=== PATIENT | male | born 1945 | race African-American/Black ===

== ENCOUNTER 2017-10-18 04:06 | Inpatient (IN) ==
[2017-10-18] MEDS ORDERED: PROPOFOL 1,000 MG/100 ML BOTTLE IV ONE (04:29)
[2017-10-18] MEDS ORDERED: SODIUM CHLORIDE 0.9% 500 ML IV STA (04:40)
[2017-10-18] MEDS ORDERED: FUROSEMIDE 40 MG/4 ML VIAL IV STA (04:43)
[2017-10-18] MEDS: PROPOFOL 1,000 MG/100 ML BOTTLE IV SCH ×4 (04:44→21:30)
[2017-10-18] MEDS ORDERED: FUROSEMIDE 40 MG/4 ML VIAL ONE (05:11)
[2017-10-18 05:19] LABS: ABG Base Excess -3.7 MMOL/L (-2.5-2.5); ABG HCO3 21.3 MMOL/L (20-26); ABG Oxygen Saturation 99.3 % (95-100); ABG PH 7.268 (7.35-7.45); ABG TCO2 21.6 MMOL/L (23-27); Allen Test Positive; Pt O2 Delivery Device Ventilator
[2017-10-18 05:49] LABS: Basophils % 0.1 % (0.0-0.8); Eosinophils % 0.1 % (0.00-10.9); Hematocrit 35.9 VOL% (42.0-52.0); Hemoglobin 11.5 GM/DL (14.0-18.0); Immature Granulocytes % 2.1 %; Immature Granulocytes Absolute 0.23 #; Lymphocytes # 0.9 10*3/uL (1.4-4.0); Lymphocytes % 7.7 % (21.2-54.2); Mean Corpuscular Hemoglobin 29 PG (27-34); Mean Corpuscular Volume 89.8 FL (87-102); Mean Platelet Volume 13.6 FL (9.6-12.0); Monocytes # 0.9 10*3/uL (0.11-0.8); Neutrophils # 9.2 10*3/uL (1.4-7.4); Platelet Count 220 T/CUMM (130-400); Red Cell Distribution Width 16.2 % (9.3-17.3); White Blood Count 11.2 T/CUMM (4-12)
[2017-10-18] MEDS: NITROGLYCERIN DRIP 50 MG/250 ML BOTTLE IV SCH (06:04)
[2017-10-18 06:09] LABS: Albumin 3.2 G/DL (3.4-5.0); Bilirubin,Total 1.2 MG/DL (0.2-1.0); Calcium 8.4 MG/DL (8.5-10.1); Osmolality,Calculated 263.8 MOS/KG (273-304); Potassium 3.9 MMOL/L (3.5-5.1)
[2017-10-18] MEDS ORDERED: ONDANSETRON 4 MG/2 ML VIAL IV PRN (06:11)
[2017-10-18 06:19] LABS: Troponin I Only 4.32 NG/ML (0.00-0.045)
[2017-10-18] MEDS ORDERED: GLUCAGON 1 MG VIAL IM PRN (08:07)
[2017-10-18] MEDS ORDERED: DEXTROSE 50% 25 GM/50 ML VIAL IV PRN (08:07)
[2017-10-18] MEDS: METOPROLOL TARTRATE 50 MG TABLET PO SCH ×2 (09:00→21:13)
[2017-10-18] MEDS ORDERED: POTASSIUM CHLORIDE 20 MEQ TABLET PO SCH (09:00)
[2017-10-18] MEDS: ASPIRIN CHEW 81 MG TABLET PO SCH (09:00)
[2017-10-18] MEDS: amLODIPine 10 MG TABLET PO SCH (09:00)
[2017-10-18] MEDS ORDERED: LEVOFLOXACIN INJ 250 MG in PREMIX 1 EACH IV SCH (11:00)
[2017-10-18] MEDS ORDERED: LEVOFLOXACIN INJ 100 ML IV ONE (11:26)
[2017-10-18 12:10] LABS: Apearance,Urine Slightly Hazy (Clear); Bilirubin,Urine Negative (Negative); Blood, Urine Moderate mg/dL (Negative); Glucose,Urine (UA) Negative (Negative); Ketones,Urine Negative (Negative); Mucus,Urine Occasional /LPF (Occasional); Nitrite,Urine Negative (Negative); Protein,Urine Negative; RBC,Urine 4 /HPF (0-4); Squamous Epithelial Cell,Urine Occasional /HPF (0-10); Urine Color Straw (Yellow); Urine Specific Gravity 1.005 (1.001-1.035); Urine Urobilinogen < 2.0 EU/DL (0.2-1.0); WBC,Urine 1 /HPF (0-6)
[2017-10-18 12:11] LABS: ABG Base Excess 1.5 MMOL/L (-2.5-2.5); ABG HCO3 25.7 MMOL/L (20-26); ABG PCO2 35.8 MM HG (35-48); ABG PH 7.454 (7.35-7.45); ABG TCO2 22.6 MMOL/L (23-27); Allen Test Positive; Pt O2 Delivery Device Ventilator
[2017-10-18] MEDS: MULTIVITAMIN (BEROCCA) TABLET PO SCH (12:32)
[2017-10-18] MEDS: FOLIC ACID 1 MG TABLET PO SCH (12:32)
[2017-10-18] MEDS ORDERED: CYANOCOBALAMIN 1000 MCG/1 ML VIAL ONE (12:34)
[2017-10-18] MEDS ORDERED: THIAMINE 200 MG/2 ML VIAL ONE (12:35)
[2017-10-18] MEDS: THIAMINE 200 MG/2 ML VIAL IV SCH (12:35)
[2017-10-18 13:48] LABS: Barbiturates Screen,Urine Negative (Negative); Benzodiazepines Screen,Urine Positive (Negative); Cannabinoid Screen,Urine Negative (Negative); Opiate Screen,Urine Negative (Negative); Phencyclidine Screen,Urine Negative (Negative)
[2017-10-18] MEDS: ISOSORBIDE DINITRATE 10 MG TABLET PO SCH ×2 (14:18→21:13)
[2017-10-18] MEDS: INSULIN LISPRO 100 UNIT/ML SUBCUT SCH ×2 (15:35→18:36)
[2017-10-18] MEDS ORDERED: FUROSEMIDE 40 MG/4 ML VIAL IV SCH ×2 (16:00)
[2017-10-18] MEDS ORDERED: hydrALAZINE 25 MG TABLET ONE (21:08)
[2017-10-18] MEDS: FUROSEMIDE 40 MG/4 ML VIAL IV SCH (21:15)
[2017-10-19] MEDS: INSULIN LISPRO 100 UNIT/ML SUBCUT SCH ×4 (00:16→17:26)
[2017-10-19] MEDS: PROPOFOL 1,000 MG/100 ML BOTTLE IV SCH ×4 (01:22→22:31)
[2017-10-19] MEDS: ENOXAPARIN 40 MG/0.4 ML SYRINGE SUBCUT SCH (03:24)
[2017-10-19 04:15] LABS: Allen Test Positive; Pt O2 Delivery Device Ventilator
[2017-10-19 04:18] LABS: ABG Base Excess 6.8 MMOL/L (-2.5-2.5); ABG HCO3 30.7 MMOL/L (20-26); ABG PCO2 26.9 MM HG (35-48); ABG TCO2 25.3 MMOL/L (23-27)
[2017-10-19 04:23] LABS: ABG PH 7.622 (7.35-7.45)
[2017-10-19 05:18] LABS: Basophils % 0.2 % (0.0-0.8); Hematocrit 29.7 VOL% (42.0-52.0); Hemoglobin 10.1 GM/DL (14.0-18.0); Immature Granulocytes % 0.5 %; Immature Granulocytes Absolute 0.03 #; Lymphocytes # 0.7 10*3/uL (1.4-4.0); Lymphocytes % 11.1 % (21.2-54.2); Mean Corpuscular Hemoglobin 29 PG (27-34); Mean Corpuscular Volume 84.1 FL (87-102); Mean Platelet Volume 14.1 FL (9.6-12.0); Monocytes # 0.7 10*3/uL (0.11-0.8); Monocytes % 10.8 % (1.7-12.7); Neutrophils % 77.4 % (38.7-73.9); Platelet Count 185 T/CUMM (130-400); Red Blood Count 3.53 MC/CUMM (3.8-5.5); Red Cell Distribution Width 16.4 % (9.3-17.3); White Blood Count 6.5 T/CUMM (4-12)
[2017-10-19 05:21] LABS: INR 1.2; PT Patient Result 12.1 SECS
[2017-10-19 05:43] LABS: Magnesium 1.5 MG/DL (1.8-2.4); Osmolality,Calculated 270.2 MOS/KG (273-304); Potassium 3.6 MMOL/L (3.5-5.1)
[2017-10-19 05:57] LABS: Albumin 2.4 G/DL (3.4-5.0); Bilirubin,Total 1.2 MG/DL (0.2-1.0); Calcium 7.8 MG/DL (8.5-10.1); Osmolality,Calculated 269.2 MOS/KG (273-304); Potassium 3.6 MMOL/L (3.5-5.1); Risk Ratio 2.9; Total Protein 5.2 G/DL (6.4-8.3); VLDL CHOLESTEROL 17.2 MG/DL
[2017-10-19] MEDS: NITROGLYCERIN DRIP 50 MG/250 ML BOTTLE IV SCH (06:23)
[2017-10-19 06:31] LABS: ABG Base Excess 7.4 MMOL/L (-2.5-2.5); ABG HCO3 31.3 MMOL/L (20-26); ABG PCO2 36.1 MM HG (35-48); ABG PH 7.534 (7.35-7.45); ABG TCO2 27.6 MMOL/L (23-27); Allen Test Positive; Pt O2 Delivery Device Ventilator
[2017-10-19] MEDS ORDERED: MAGNESIUM SULF RIDER 2 GM in PREMIX 1 EACH IV PRN (06:37)
[2017-10-19] MEDS ORDERED: POTASSIUM CHLORIDE RIDER 10 MEQ in PREMIX 1 EACH IV PRN (06:37)
[2017-10-19] MEDS ORDERED: MAGNESIUM SULF RIDER 4 GM in PREMIX 1 EACH IV PRN (06:37)
[2017-10-19] MEDS: ASPIRIN CHEW 81 MG TABLET PO SCH (08:30)
[2017-10-19] MEDS: MAGNESIUM SULF RIDER 2 GM in PREMIX 1 EACH IV SCH ×2 (08:30→21:29)
[2017-10-19] MEDS: FOLIC ACID 1 MG TABLET PO SCH (08:30)
[2017-10-19] MEDS: THIAMINE 200 MG/2 ML VIAL IV SCH (08:30)
[2017-10-19] MEDS: ISOSORBIDE DINITRATE 10 MG TABLET PO SCH ×3 (08:30→21:33)
[2017-10-19] MEDS: POTASSIUM CHLORIDE 20 MEQ PACK PO SCH (08:30)
[2017-10-19] MEDS: MULTIVITAMIN (BEROCCA) TABLET PO SCH (08:30)
[2017-10-19] MEDS: FUROSEMIDE 40 MG/4 ML VIAL IV SCH ×2 (08:31→21:38)
[2017-10-19] MEDS: METOPROLOL TARTRATE 50 MG TABLET PO SCH ×2 (08:35→21:33)
[2017-10-19] MEDS: amLODIPine 10 MG TABLET PO SCH (08:35)
[2017-10-19] MEDS ORDERED: ALBUMIN 25% 12.5 GM in PREMIX 1 EACH IV ONE (15:16)
[2017-10-19] MEDS ORDERED: LORazepam 2 MG/1 ML VIAL IV PRN (19:46)
[2017-10-20] MEDS: INSULIN LISPRO 100 UNIT/ML SUBCUT SCH ×4 (00:01→17:21)
[2017-10-20] MEDS: ENOXAPARIN 40 MG/0.4 ML SYRINGE SUBCUT SCH (02:55)
[2017-10-20 04:42] LABS: ABG Base Excess 3.9 MMOL/L (-2.5-2.5); ABG HCO3 26.7 MMOL/L (20-26); ABG Oxygen Saturation 99.2 % (95-100); ABG PH 7.513 (7.35-7.45); ABG PO2 218.9 MM HG (80-95); ABG TCO2 27.8 MMOL/L (23-27); Allen Test Positive; Pt O2 Delivery Device Ventilator
[2017-10-20] MEDS: PROPOFOL 1,000 MG/100 ML BOTTLE IV SCH ×2 (07:13→18:48)
[2017-10-20] MEDS: amLODIPine 10 MG TABLET PO SCH (08:11)
[2017-10-20] MEDS: ISOSORBIDE DINITRATE 10 MG TABLET PO SCH ×3 (08:16→21:12)
[2017-10-20] MEDS: POTASSIUM CHLORIDE 20 MEQ PACK PO SCH (08:16)
[2017-10-20] MEDS: MAGNESIUM SULF RIDER 2 GM in PREMIX 1 EACH IV SCH (08:16)
[2017-10-20] MEDS: metOLazone 5 MG TABLET PO SCH (08:17)
[2017-10-20] MEDS: MULTIVITAMIN (BEROCCA) TABLET PO SCH (08:17)
[2017-10-20] MEDS: METOPROLOL TARTRATE 50 MG TABLET PO SCH ×2 (08:17→21:12)
[2017-10-20] MEDS: ASPIRIN CHEW 81 MG TABLET PO SCH (08:17)
[2017-10-20] MEDS: THIAMINE 200 MG/2 ML VIAL IV SCH (08:17)
[2017-10-20] MEDS: FUROSEMIDE 40 MG/4 ML VIAL IV SCH (08:17)
[2017-10-20] MEDS: FOLIC ACID 1 MG TABLET PO SCH (08:17)
[2017-10-20 08:20] LABS: Basophils % 0.1 % (0.0-0.8); Eosinophils # 0.1 10*3/uL (0.0-0.87); Eosinophils % 1.1 % (0.00-10.9); Hematocrit 33.7 VOL% (42.0-52.0); Hemoglobin 10.8 GM/DL (14.0-18.0); Immature Granulocytes % 0.4 %; Immature Granulocytes Absolute 0.03 #; Lymphocytes # 1.4 10*3/uL (1.4-4.0); Lymphocytes % 16.3 % (21.2-54.2); Mean Corpuscular Hemoglobin 28 PG (27-34); Mean Corpuscular Volume 87.1 FL (87-102); Monocytes # 1.4 10*3/uL (0.11-0.8); Monocytes % 16.5 % (1.7-12.7); Neutrophils # 5.5 10*3/uL (1.4-7.4); Neutrophils % 65.6 % (38.7-73.9); Platelet Count 170 T/CUMM (130-400); Red Blood Count 3.87 MC/CUMM (3.8-5.5); Red Cell Distribution Width 16.8 % (9.3-17.3); White Blood Count 8.4 T/CUMM (4-12)
[2017-10-20 08:27] LABS: Albumin 2.7 G/DL (3.4-5.0); Calcium 8.6 MG/DL (8.5-10.1); Magnesium 2.7 MG/DL (1.8-2.4); Osmolality,Calculated 267.5 MOS/KG (273-304); Potassium 3.9 MMOL/L (3.5-5.1)
[2017-10-20 08:38] LABS: CKMB % 1.9 %
[2017-10-20 08:39] LABS: Troponin I Only 8.07 NG/ML (0.00-0.045)
[2017-10-20] MEDS ORDERED: BISACODYL 10 MG SUPP RECTAL ONE (09:12)
[2017-10-20] MEDS ORDERED: BISACODYL 10 MG SUPP RECTAL PRN (09:12)
[2017-10-20 11:57] LABS: Eosinophils 1 % (0-10); Lymphocytes 13 % (20-55); Segmented Neutrophils 78 % (50-85); Total Cells Counted 100
[2017-10-20 11:58] LABS: Platelet Estimate Adequate
[2017-10-20 12:00] LABS: Burr Cells Slight; Target Cells Slight
[2017-10-20] MEDS: ENOXAPARIN 30 MG/0.3 ML SYRINGE SUBCUT SCH (21:13)
[2017-10-21] MEDS: INSULIN LISPRO 100 UNIT/ML SUBCUT SCH ×4 (00:01→17:24)
[2017-10-21] MEDS: PROPOFOL 1,000 MG/100 ML BOTTLE IV SCH ×4 (00:31→20:18)
[2017-10-21 04:32] LABS: ABG Base Excess 4.9 MMOL/L (-2.5-2.5); ABG HCO3 28.1 MMOL/L (20-26); ABG Oxygen Saturation 97.8 % (95-100); ABG PCO2 36.4 MM HG (35-48); ABG PH 7.506 (7.35-7.45); ABG PO2 115.1 MM HG (80-95); ABG TCO2 29.3 MMOL/L (23-27)
[2017-10-21 04:42] LABS: Basophils % 0.2 % (0.0-0.8); Eosinophils # 0.2 10*3/uL (0.0-0.87); Eosinophils % 1.9 % (0.00-10.9); Hematocrit 31.4 VOL% (42.0-52.0); Hemoglobin 10.2 GM/DL (14.0-18.0); Immature Granulocytes % 0.5 %; Immature Granulocytes Absolute 0.05 #; Lymphocytes # 1.4 10*3/uL (1.4-4.0); Lymphocytes % 14.8 % (21.2-54.2); Mean Corpuscular HGB Conc 32.5 GM/DL (32-36); Mean Corpuscular Hemoglobin 28 PG (27-34); Mean Corpuscular Volume 85.8 FL (87-102); Mean Platelet Volume 13.5 FL (9.6-12.0); Monocytes % 20.8 % (1.7-12.7); Neutrophils # 5.8 10*3/uL (1.4-7.4); Neutrophils % 61.8 % (38.7-73.9); Platelet Count 176 T/CUMM (130-400); Red Blood Count 3.66 MC/CUMM (3.8-5.5); Red Cell Distribution Width 16.9 % (9.3-17.3); White Blood Count 9.4 T/CUMM (4-12)
[2017-10-21 05:02] LABS: Calcium 8.5 MG/DL (8.5-10.1); Magnesium 2.9 MG/DL (1.8-2.4); Osmolality,Calculated 271.4 MOS/KG (273-304); Potassium 3.9 MMOL/L (3.5-5.1)
[2017-10-21 05:05] LABS: Albumin 2.6 G/DL (3.4-5.0); Calcium 8.6 MG/DL (8.5-10.1); Osmolality,Calculated 269.5 MOS/KG (273-304); Potassium 4.1 MMOL/L (3.5-5.1)
[2017-10-21 08:25] LABS: Burr Cells Slight; Eosinophils 2 % (0-10); Lymphocytes 14 % (20-55); Nucleated Red Blood Cells 1 (0-5); Platelet Estimate Adequate; Segmented Neutrophils 69 % (50-85); Target Cells Slight; Total Cells Counted 100
[2017-10-21] MEDS: POTASSIUM CHLORIDE 20 MEQ PACK PO SCH (08:43)
[2017-10-21] MEDS: THIAMINE 200 MG/2 ML VIAL IV SCH (08:43)
[2017-10-21] MEDS: MULTIVITAMIN (BEROCCA) TABLET PO SCH (08:43)
[2017-10-21] MEDS: ASPIRIN CHEW 81 MG TABLET PO SCH (08:43)
[2017-10-21] MEDS: amLODIPine 10 MG TABLET PO SCH (08:43)
[2017-10-21] MEDS: metOLazone 5 MG TABLET PO SCH (08:43)
[2017-10-21] MEDS: ISOSORBIDE DINITRATE 10 MG TABLET PO SCH ×3 (08:43→22:06)
[2017-10-21] MEDS: FOLIC ACID 1 MG TABLET PO SCH (08:43)
[2017-10-21] MEDS: METOPROLOL TARTRATE 50 MG TABLET PO SCH ×2 (08:43→22:06)
[2017-10-21] MEDS: DOBUTamine 500 MG/250 ML PREMIX IV SCH (10:53)
[2017-10-21] MEDS: ENOXAPARIN 30 MG/0.3 ML SYRINGE SUBCUT SCH (22:06)
[2017-10-22] MEDS: INSULIN LISPRO 100 UNIT/ML SUBCUT SCH ×5 (01:01→23:38)
[2017-10-22 04:13] LABS: ABG Base Excess 6.5 MMOL/L (-2.5-2.5); ABG HCO3 30.1 MMOL/L (20-26); ABG PCO2 39.3 MM HG (35-48); ABG PH 7.502 (7.35-7.45); ABG PO2 164.6 MM HG (80-95); ABG TCO2 31.3 MMOL/L (23-27)
[2017-10-22 04:49] LABS: Basophils % 0.3 % (0.0-0.8); Eosinophils # 0.1 10*3/uL (0.0-0.87); Eosinophils % 1.7 % (0.00-10.9); Hematocrit 30.7 VOL% (42.0-52.0); Hemoglobin 9.9 GM/DL (14.0-18.0); Immature Granulocytes % 0.5 %; Immature Granulocytes Absolute 0.04 #; Lymphocytes # 0.9 10*3/uL (1.4-4.0); Lymphocytes % 11.4 % (21.2-54.2); Mean Corpuscular HGB Conc 32.2 GM/DL (32-36); Mean Corpuscular Hemoglobin 28 PG (27-34); Mean Corpuscular Volume 86.2 FL (87-102); Mean Platelet Volume 14.1 FL (9.6-12.0); Monocytes # 0.9 10*3/uL (0.11-0.8); Monocytes % 12.4 % (1.7-12.7); Neutrophils # 5.6 10*3/uL (1.4-7.4); Neutrophils % 73.7 % (38.7-73.9); Platelet Count 178 T/CUMM (130-400); Red Blood Count 3.56 MC/CUMM (3.8-5.5); Red Cell Distribution Width 16.4 % (9.3-17.3); White Blood Count 7.6 T/CUMM (4-12)
[2017-10-22 05:37] LABS: Albumin 2.7 G/DL (3.4-5.0); Bilirubin,Direct 0.46 MG/DL (0.0-0.20); Bilirubin,Indirect 0.5 MG/DL (0.0-1.0); Calcium 8.3 MG/DL (8.5-10.1); Magnesium 2.7 MG/DL (1.8-2.4); Osmolality,Calculated 275.2 MOS/KG (273-304); Potassium 3.8 MMOL/L (3.5-5.1); Total Protein 5.8 G/DL (6.4-8.3)
[2017-10-22] MEDS: PROPOFOL 1,000 MG/100 ML BOTTLE IV SCH ×2 (06:12→22:04)
[2017-10-22 06:18] LABS: Albumin 2.8 G/DL (3.4-5.0); Calcium 8.2 MG/DL (8.5-10.1); Osmolality,Calculated 275.2 MOS/KG (273-304); Potassium 3.7 MMOL/L (3.5-5.1)
[2017-10-22] MEDS: amLODIPine 10 MG TABLET PO SCH (08:57)
[2017-10-22] MEDS: POTASSIUM CHLORIDE 20 MEQ PACK PO SCH (08:57)
[2017-10-22] MEDS: MULTIVITAMIN (BEROCCA) TABLET PO SCH (08:58)
[2017-10-22] MEDS: ASPIRIN CHEW 81 MG TABLET PO SCH (08:58)
[2017-10-22] MEDS: ISOSORBIDE DINITRATE 10 MG TABLET PO SCH ×3 (08:58→22:03)
[2017-10-22] MEDS: FOLIC ACID 1 MG TABLET PO SCH (08:58)
[2017-10-22] MEDS: THIAMINE 200 MG/2 ML VIAL IV SCH (08:59)
[2017-10-22] MEDS: METOPROLOL TARTRATE 50 MG TABLET PO SCH ×2 (09:03→22:02)
[2017-10-22] MEDS: DOBUTamine 500 MG/250 ML PREMIX IV SCH ×2 (09:39→11:47)
[2017-10-22] MEDS ORDERED: POTASSIUM CHLORIDE INJ 20 MEQ in SODIUM CHLORIDE 0.45% 250 ML IV SCH (10:00)
[2017-10-22] MEDS: MILRINONE 20 MG/100 ML PREMIX IV SCH (13:04)
[2017-10-22] MEDS: METOCLOPRAMIDE 10 MG/2 ML VIAL IV SCH ×3 (14:30→23:36)
[2017-10-22] MEDS: ENOXAPARIN 30 MG/0.3 ML SYRINGE SUBCUT SCH (22:02)
[2017-10-23] MEDS: MILRINONE 20 MG/100 ML PREMIX IV SCH ×2 (02:20→15:49)
[2017-10-23] MEDS: PROPOFOL 1,000 MG/100 ML BOTTLE IV SCH ×5 (02:21→20:57)
[2017-10-23 04:22] LABS: Allen Test Positive; Pt O2 Delivery Device Ventilator
[2017-10-23 04:23] LABS: ABG Base Excess 9.2 MMOL/L (-2.5-2.5); ABG Oxygen Saturation 99.5 % (95-100); ABG PCO2 47.1 MM HG (35-48); ABG PH 7.469 (7.35-7.45); ABG TCO2 30.6 MMOL/L (23-27)
[2017-10-23 05:05] LABS: Albumin 2.5 G/DL (3.4-5.0); Calcium 8.2 MG/DL (8.5-10.1); Potassium 3.5 MMOL/L (3.5-5.1)
[2017-10-23] MEDS: INSULIN LISPRO 100 UNIT/ML SUBCUT SCH ×4 (06:36→23:12)
[2017-10-23] MEDS: METOCLOPRAMIDE 10 MG/2 ML VIAL IV SCH ×3 (07:25→17:16)
[2017-10-23] MEDS: THIAMINE 200 MG/2 ML VIAL IV SCH (08:34)
[2017-10-23] MEDS: MULTIVITAMIN (BEROCCA) TABLET PO SCH (08:35)
[2017-10-23] MEDS: amLODIPine 10 MG TABLET PO SCH (08:35)
[2017-10-23] MEDS: POTASSIUM CHLORIDE 20 MEQ PACK PO SCH (08:35)
[2017-10-23] MEDS: ISOSORBIDE DINITRATE 10 MG TABLET PO SCH ×3 (08:35→20:57)
[2017-10-23] MEDS: ASPIRIN CHEW 81 MG TABLET PO SCH (08:36)
[2017-10-23] MEDS: FOLIC ACID 1 MG TABLET PO SCH (08:36)
[2017-10-23] MEDS: METOPROLOL TARTRATE 50 MG TABLET PO SCH ×2 (08:36→20:41)
[2017-10-23] MEDS ORDERED: POTASSIUM CHLORIDE INJ 20 MEQ in SODIUM CHLORIDE 0.9% 250 ML IV SCH (09:30)
[2017-10-23] MEDS: DOBUTamine 500 MG/250 ML PREMIX IV SCH (10:10)
[2017-10-23] MEDS: ENOXAPARIN 30 MG/0.3 ML SYRINGE SUBCUT SCH (20:57)
[2017-10-24] MEDS ORDERED: SODIUM CHLORIDE 0.9% 200 ML IV ONE (00:30)
[2017-10-24] MEDS: METOCLOPRAMIDE 10 MG/2 ML VIAL IV SCH ×4 (01:30→18:10)
[2017-10-24] MEDS: PROPOFOL 1,000 MG/100 ML BOTTLE IV SCH ×4 (01:53→23:52)
[2017-10-24 04:18] LABS: ABG Base Excess 10.4 MMOL/L (-2.5-2.5); ABG HCO3 34.1 MMOL/L (20-26); ABG Oxygen Saturation 99.9 % (95-100); ABG PCO2 43.8 MM HG (35-48); ABG PH 7.506 (7.35-7.45); ABG TCO2 31.8 MMOL/L (23-27); Allen Test Positive; Pt O2 Delivery Device Ventilator
[2017-10-24] MEDS: INSULIN LISPRO 100 UNIT/ML SUBCUT SCH ×4 (05:28→23:52)
[2017-10-24] MEDS: MILRINONE 20 MG/100 ML PREMIX IV SCH ×2 (06:28→21:15)
[2017-10-24] MEDS ORDERED: MIDAZOLAM 100 MG in SODIUM CHLORIDE 0.9% 80 ML IV SCH (08:30)
[2017-10-24] MEDS: MULTIVITAMIN (BEROCCA) TABLET PO SCH (09:00)
[2017-10-24] MEDS: ASPIRIN CHEW 81 MG TABLET PO SCH (09:00)
[2017-10-24] MEDS: POTASSIUM CHLORIDE 20 MEQ PACK PO SCH (09:00)
[2017-10-24] MEDS: THIAMINE 200 MG/2 ML VIAL IV SCH (09:00)
[2017-10-24] MEDS: FOLIC ACID 1 MG TABLET PO SCH (09:00)
[2017-10-24] MEDS: METOPROLOL TARTRATE 50 MG TABLET PO SCH ×3 (09:00→20:17)
[2017-10-24] MEDS: ISOSORBIDE DINITRATE 10 MG TABLET PO SCH ×3 (09:00→20:17)
[2017-10-24] MEDS: amLODIPine 10 MG TABLET PO SCH (09:00)
[2017-10-24 09:24] LABS: Calcium 7.6 MG/DL (8.5-10.1); Magnesium 2.5 MG/DL (1.8-2.4); Potassium 3.7 MMOL/L (3.5-5.1)
[2017-10-24] MEDS: DOBUTamine 500 MG/250 ML PREMIX IV SCH (10:00)
[2017-10-24] MEDS ORDERED: INFLUENZA VIRUS VACCINE 0.5 ML SYRINGE IM ONE (12:00)
[2017-10-24] MEDS: hydrALAZINE 25 MG TABLET PO SCH ×2 (17:10→20:17)
[2017-10-24] MEDS: ENOXAPARIN 30 MG/0.3 ML SYRINGE SUBCUT SCH (20:17)
[2017-10-25] MEDS: METOCLOPRAMIDE 10 MG/2 ML VIAL IV SCH ×4 (00:20→18:00)
[2017-10-25 02:54] LABS: ABG Base Excess 12.1 MMOL/L (-2.5-2.5); ABG HCO3 36.3 MMOL/L (20-26); ABG Oxygen Saturation 98.4 % (95-100); ABG PH 7.515 (7.35-7.45); ABG PO2 126.8 MM HG (80-95); ABG TCO2 37.7 MMOL/L (23-27); Allen Test Positive; Pt O2 Delivery Device Ventilator
[2017-10-25] MEDS: INSULIN LISPRO 100 UNIT/ML SUBCUT SCH ×3 (06:04→18:00)
[2017-10-25 06:24] LABS: Basophils % 0.1 % (0.0-0.8); Eosinophils # 0.3 10*3/uL (0.0-0.87); Eosinophils % 3.4 % (0.00-10.9); Hematocrit 26.1 VOL% (42.0-52.0); Hemoglobin 8.6 GM/DL (14.0-18.0); Immature Granulocytes % 0.8 %; Immature Granulocytes Absolute 0.06 #; Lymphocytes % 12.9 % (21.2-54.2); Mean Corpuscular Hemoglobin 28 PG (27-34); Mean Corpuscular Volume 84.2 FL (87-102); Mean Platelet Volume 13.8 FL (9.6-12.0); Monocytes # 1.2 10*3/uL (0.11-0.8); Monocytes % 16.6 % (1.7-12.7); Neutrophils # 4.9 10*3/uL (1.4-7.4); Neutrophils % 66.2 % (38.7-73.9); Platelet Count 164 T/CUMM (130-400); Red Cell Distribution Width 17.2 % (9.3-17.3); White Blood Count 7.5 T/CUMM (4-12)
[2017-10-25 06:48] LABS: Eosinophils 5 % (0-10); Hypochromasia 1+; Lymphocytes 20 % (20-55); Microcytosis 1+; Segmented Neutrophils 62 % (50-85); Total Cells Counted 100
[2017-10-25 06:49] LABS: Giant Platelets Few; Platelet Estimate Adequate
[2017-10-25 06:53] LABS: Calcium 8.1 MG/DL (8.5-10.1); Magnesium 2.2 MG/DL (1.8-2.4); Osmolality,Calculated 284.8 MOS/KG (273-304); Potassium 3.6 MMOL/L (3.5-5.1)
[2017-10-25 07:06] LABS: Prealbumin 13.8 MG/DL (20-40)
[2017-10-25] MEDS: PROPOFOL 1,000 MG/100 ML BOTTLE IV SCH ×2 (08:00→17:00)
[2017-10-25] MEDS: hydrALAZINE 25 MG TABLET PO SCH ×4 (08:30→21:13)
[2017-10-25] MEDS: ASPIRIN CHEW 81 MG TABLET PO SCH (08:30)
[2017-10-25] MEDS: FOLIC ACID 1 MG TABLET PO SCH (08:30)
[2017-10-25] MEDS: POTASSIUM CHLORIDE 20 MEQ PACK PO SCH (08:30)
[2017-10-25] MEDS: ISOSORBIDE DINITRATE 10 MG TABLET PO SCH ×3 (08:30→21:12)
[2017-10-25] MEDS: METOPROLOL TARTRATE 50 MG TABLET PO SCH ×2 (08:30→21:12)
[2017-10-25] MEDS: MULTIVITAMIN (BEROCCA) TABLET PO SCH (08:30)
[2017-10-25] MEDS: THIAMINE 200 MG/2 ML VIAL IV SCH (08:30)
[2017-10-25 09:40] LABS: ABG Base Excess 11.6 MMOL/L (-2.5-2.5); ABG HCO3 36.3 MMOL/L (20-26); ABG Oxygen Saturation 98.2 % (95-100); ABG PCO2 49.1 MM HG (35-48); ABG PH 7.487 (7.35-7.45); ABG PO2 114.4 MM HG (80-95); ABG TCO2 37.8 MMOL/L (23-27)
[2017-10-25] MEDS: DOBUTamine 500 MG/250 ML PREMIX IV SCH (10:00)
[2017-10-25] MEDS ORDERED: FUROSEMIDE 40 MG/4 ML VIAL IV SCH (14:00)
[2017-10-25] MEDS: ALBUMIN 25% 25 GM in PREMIX 1 EACH IV SCH (14:00)
[2017-10-25] MEDS: ENOXAPARIN 30 MG/0.3 ML SYRINGE SUBCUT SCH (21:12)
[2017-10-25] MEDS: LACTULOSE 20 GM/30 ML UDCUP PO SCH (21:13)
[2017-10-26] MEDS: INSULIN LISPRO 100 UNIT/ML SUBCUT SCH ×5 (00:23→23:25)
[2017-10-26] MEDS: METOCLOPRAMIDE 10 MG/2 ML VIAL IV SCH ×5 (00:51→23:35)
[2017-10-26] MEDS: PROPOFOL 1,000 MG/100 ML BOTTLE IV SCH ×2 (03:25→09:03)
[2017-10-26 06:42] LABS: Basophils % 0.5 % (0.0-0.8); Eosinophils # 0.3 10*3/uL (0.0-0.87); Eosinophils % 3.9 % (0.00-10.9); Hematocrit 26.6 VOL% (42.0-52.0); Hemoglobin 8.6 GM/DL (14.0-18.0); Immature Granulocytes % 0.8 %; Immature Granulocytes Absolute 0.06 #; Lymphocytes % 13.6 % (21.2-54.2); Mean Corpuscular HGB Conc 32.3 GM/DL (32-36); Mean Corpuscular Hemoglobin 28 PG (27-34); Mean Corpuscular Volume 85.3 FL (87-102); Mean Platelet Volume 13.1 FL (9.6-12.0); Monocytes # 1.1 10*3/uL (0.11-0.8); Monocytes % 14.4 % (1.7-12.7); Neutrophils % 66.8 % (38.7-73.9); Platelet Count 172 T/CUMM (130-400); Red Blood Count 3.12 MC/CUMM (3.8-5.5); Red Cell Distribution Width 17.2 % (9.3-17.3); White Blood Count 7.4 T/CUMM (4-12)
[2017-10-26 07:10] LABS: Calcium 8.5 MG/DL (8.5-10.1); Magnesium 2.2 MG/DL (1.8-2.4); Osmolality,Calculated 288.5 MOS/KG (273-304); Potassium 3.5 MMOL/L (3.5-5.1)
[2017-10-26 07:20] LABS: ABG Base Excess 11.9 MMOL/L (-2.5-2.5); ABG HCO3 36.5 MMOL/L (20-26); ABG Oxygen Saturation 98.1 % (95-100); ABG PCO2 48.3 MM HG (35-48); ABG PH 7.496 (7.35-7.45); ABG PO2 110.1 MM HG (80-95); Allen Test Positive; Pt O2 Delivery Device Ventilator
[2017-10-26] MEDS: ASPIRIN CHEW 81 MG TABLET PO SCH (08:06)
[2017-10-26] MEDS: LACTULOSE 20 GM/30 ML UDCUP PO SCH ×2 (08:06→20:20)
[2017-10-26] MEDS: THIAMINE 200 MG/2 ML VIAL IV SCH (08:06)
[2017-10-26] MEDS: ISOSORBIDE DINITRATE 10 MG TABLET PO SCH ×3 (08:06→20:20)
[2017-10-26] MEDS: hydrALAZINE 25 MG TABLET PO SCH ×3 (08:06→20:23)
[2017-10-26] MEDS: FOLIC ACID 1 MG TABLET PO SCH (08:06)
[2017-10-26] MEDS: POTASSIUM CHLORIDE 20 MEQ PACK PO SCH (08:07)
[2017-10-26] MEDS: MULTIVITAMIN (BEROCCA) TABLET PO SCH (08:07)
[2017-10-26] MEDS: METOPROLOL TARTRATE 50 MG TABLET PO SCH (08:07)
[2017-10-26] MEDS: ALBUMIN 25% 25 GM in PREMIX 1 EACH IV SCH (08:09)
[2017-10-26] MEDS: FUROSEMIDE 40 MG/4 ML VIAL IV SCH (08:10)
[2017-10-26] MEDS ORDERED: POTASSIUM CHLORIDE INJ 30 MEQ in SODIUM CHLORIDE 0.9% 500 ML IV SCH (09:00)
[2017-10-26 09:49] LABS: Allen Test Positive
[2017-10-26 09:50] LABS: ABG Base Excess 11.5 MMOL/L (-2.5-2.5); ABG HCO3 35.3 MMOL/L (20-26); ABG Oxygen Saturation 99.9 % (95-100); ABG PCO2 51.6 MM HG (35-48); ABG PH 7.462 (7.35-7.45)
[2017-10-26] MEDS ORDERED: ALBUTEROL/IPRATROPIUM 3 ML NEB RESP TX PRN (11:26)
[2017-10-26] MEDS: ALBUTEROL/IPRATROPIUM 3 ML NEB RESP TX SCH ×2 (13:41→19:26)
[2017-10-26] MEDS: METOPROLOL TARTRATE 100 MG TABLET PO SCH ×2 (15:31→20:24)
[2017-10-26] MEDS: ENOXAPARIN 30 MG/0.3 ML SYRINGE SUBCUT SCH (20:20)
[2017-10-27] MEDS: ALBUTEROL/IPRATROPIUM 3 ML NEB RESP TX SCH ×4 (01:31→19:28)
[2017-10-27 03:30] LABS: ABG Base Excess 10.8 MMOL/L (-2.5-2.5); ABG HCO3 34.5 MMOL/L (20-26); ABG Oxygen Saturation 99.6 % (95-100); ABG PCO2 48.4 MM HG (35-48); ABG PH 7.476 (7.35-7.45)
[2017-10-27 04:11] LABS: Basophils % 0.6 % (0.0-0.8); Eosinophils # 0.3 10*3/uL (0.0-0.87); Eosinophils % 5.2 % (0.00-10.9); Hematocrit 25.6 VOL% (42.0-52.0); Immature Granulocytes % 0.5 %; Immature Granulocytes Absolute 0.03 #; Lymphocytes # 1.3 10*3/uL (1.4-4.0); Lymphocytes % 20.3 % (21.2-54.2); Mean Corpuscular HGB Conc 31.3 GM/DL (32-36); Mean Corpuscular Hemoglobin 28 PG (27-34); Mean Corpuscular Volume 88.9 FL (87-102); Mean Platelet Volume 13.8 FL (9.6-12.0); Monocytes # 0.9 10*3/uL (0.11-0.8); Monocytes % 14.6 % (1.7-12.7); Neutrophils # 3.7 10*3/uL (1.4-7.4); Neutrophils % 58.8 % (38.7-73.9); Platelet Count 151 T/CUMM (130-400); Red Blood Count 2.88 MC/CUMM (3.8-5.5); Red Cell Distribution Width 17.1 % (9.3-17.3); White Blood Count 6.4 T/CUMM (4-12)
[2017-10-27 04:32] LABS: Calcium 8.4 MG/DL (8.5-10.1); Magnesium 1.9 MG/DL (1.8-2.4); Osmolality,Calculated 288.4 MOS/KG (273-304); Potassium 3.9 MMOL/L (3.5-5.1)
[2017-10-27] MEDS: METOCLOPRAMIDE 10 MG/2 ML VIAL IV SCH (05:07)
[2017-10-27] MEDS: INSULIN LISPRO 100 UNIT/ML SUBCUT SCH (05:52)
[2017-10-27] MEDS ORDERED: POTASSIUM CHLORIDE INJ 20 MEQ in SODIUM CHLORIDE 0.9% 250 ML IV ONE (08:00)
[2017-10-27] MEDS: POTASSIUM CHLORIDE 20 MEQ PACK PO SCH (09:00)
[2017-10-27] MEDS: MULTIVITAMIN (BEROCCA) TABLET PO SCH (09:01)
[2017-10-27] MEDS: hydrALAZINE 25 MG TABLET PO SCH ×2 (09:01→21:39)
[2017-10-27] MEDS: ISOSORBIDE DINITRATE 10 MG TABLET PO SCH ×2 (09:02→21:40)
[2017-10-27] MEDS: ASPIRIN CHEW 81 MG TABLET PO SCH (09:03)
[2017-10-27] MEDS: FOLIC ACID 1 MG TABLET PO SCH (09:03)
[2017-10-27] MEDS: ALBUMIN 25% 25 GM in PREMIX 1 EACH IV SCH (09:04)
[2017-10-27] MEDS: METOPROLOL TARTRATE 100 MG TABLET PO SCH ×3 (09:04→21:41)
[2017-10-27] MEDS: LACTULOSE 20 GM/30 ML UDCUP PO SCH ×2 (09:05→21:41)
[2017-10-27] MEDS: THIAMINE 200 MG/2 ML VIAL IV SCH (09:05)
[2017-10-27] MEDS: FUROSEMIDE 40 MG/4 ML VIAL IV SCH (09:05)
[2017-10-27] MEDS: METOCLOPRAMIDE 5 MG TABLET PO SCH ×2 (12:30→17:35)
[2017-10-27] MEDS: ENOXAPARIN 30 MG/0.3 ML SYRINGE SUBCUT SCH (21:41)
[2017-10-28] MEDS: METOCLOPRAMIDE 5 MG TABLET PO SCH ×4 (00:01→17:10)
[2017-10-28] MEDS: ALBUTEROL/IPRATROPIUM 3 ML NEB RESP TX SCH ×4 (00:25→20:09)
[2017-10-28 04:28] LABS: ABG Base Excess 11.2 MMOL/L (-2.5-2.5); ABG HCO3 35.2 MMOL/L (20-26); ABG Oxygen Saturation 97.8 % (95-100); ABG PCO2 44.2 MM HG (35-48); ABG PH 7.519 (7.35-7.45); ABG PO2 108.5 MM HG (80-95); ABG TCO2 36.6 MMOL/L (23-27); Allen Test Positive
[2017-10-28 06:27] LABS: Basophils % 0.3 % (0.0-0.8); Eosinophils # 0.3 10*3/uL (0.0-0.87); Eosinophils % 4.2 % (0.00-10.9); Hematocrit 24.3 VOL% (42.0-52.0); Hemoglobin 7.6 GM/DL (14.0-18.0); Immature Granulocytes % 0.5 %; Immature Granulocytes Absolute 0.03 #; Lymphocytes # 1.4 10*3/uL (1.4-4.0); Lymphocytes % 22.1 % (21.2-54.2); Mean Corpuscular HGB Conc 31.3 GM/DL (32-36); Mean Corpuscular Hemoglobin 27 PG (27-34); Mean Corpuscular Volume 87.1 FL (87-102); Mean Platelet Volume 13.7 FL (9.6-12.0); Monocytes # 0.9 10*3/uL (0.11-0.8); Monocytes % 14.6 % (1.7-12.7); Neutrophils # 3.7 10*3/uL (1.4-7.4); Neutrophils % 58.3 % (38.7-73.9); Platelet Count 154 T/CUMM (130-400); Red Blood Count 2.79 MC/CUMM (3.8-5.5); Red Cell Distribution Width 17.5 % (9.3-17.3); White Blood Count 6.4 T/CUMM (4-12)
[2017-10-28 07:11] LABS: Calcium 8.7 MG/DL (8.5-10.1); Osmolality,Calculated 289.4 MOS/KG (273-304); Potassium 3.9 MMOL/L (3.5-5.1)
[2017-10-28] MEDS: MULTIVITAMIN (BEROCCA) TABLET PO SCH (08:14)
[2017-10-28] MEDS: ISOSORBIDE DINITRATE 10 MG TABLET PO SCH ×2 (08:14→21:52)
[2017-10-28] MEDS: FOLIC ACID 1 MG TABLET PO SCH (08:15)
[2017-10-28] MEDS: ASPIRIN CHEW 81 MG TABLET PO SCH (08:15)
[2017-10-28] MEDS: LACTULOSE 20 GM/30 ML UDCUP PO SCH ×2 (08:15→21:51)
[2017-10-28] MEDS: FUROSEMIDE 40 MG TABLET PO SCH (08:15)
[2017-10-28] MEDS: POTASSIUM CHLORIDE 20 MEQ PACK PO SCH (08:15)
[2017-10-28] MEDS: METOPROLOL TARTRATE 100 MG TABLET PO SCH ×3 (08:15→21:52)
[2017-10-28] MEDS: hydrALAZINE 25 MG TABLET PO SCH ×2 (08:15→21:51)
[2017-10-28] MEDS: THIAMINE 200 MG/2 ML VIAL IV SCH (08:16)
[2017-10-28] MEDS ORDERED: SODIUM CHLORIDE 0.9% 1,000 ML IV PRN (19:08)
[2017-10-28] MEDS ORDERED: FUROSEMIDE 40 MG/4 ML VIAL IV PRN (19:08)
[2017-10-28] MEDS: ENOXAPARIN 30 MG/0.3 ML SYRINGE SUBCUT SCH (21:53)
[2017-10-29] MEDS: ALBUTEROL/IPRATROPIUM 3 ML NEB RESP TX SCH ×4 (00:16→19:19)
[2017-10-29] MEDS: METOCLOPRAMIDE 5 MG TABLET PO SCH ×6 (00:32→23:23)
[2017-10-29 04:22] LABS: Allen Test Positive
[2017-10-29 04:23] LABS: ABG Base Excess 9.2 MMOL/L (-2.5-2.5); ABG HCO3 32.7 MMOL/L (20-26); ABG Oxygen Saturation 87.3 % (95-100); ABG PCO2 44.7 MM HG (35-48); ABG PH 7.487 (7.35-7.45)
[2017-10-29] MEDS: hydrALAZINE 25 MG TABLET PO SCH (08:19)
[2017-10-29] MEDS: ISOSORBIDE DINITRATE 10 MG TABLET PO SCH ×2 (08:20→22:10)
[2017-10-29] MEDS: METOPROLOL TARTRATE 100 MG TABLET PO SCH ×3 (08:20→22:10)
[2017-10-29] MEDS: LACTULOSE 20 GM/30 ML UDCUP PO SCH ×2 (09:18→21:57)
[2017-10-29] MEDS: THIAMINE 200 MG/2 ML VIAL IV SCH (09:19)
[2017-10-29] MEDS: FUROSEMIDE 40 MG TABLET PO SCH (09:19)
[2017-10-29] MEDS: POTASSIUM CHLORIDE 20 MEQ PACK PO SCH (09:28)
[2017-10-29] MEDS: ASPIRIN CHEW 81 MG TABLET PO SCH (09:28)
[2017-10-29] MEDS: FOLIC ACID 1 MG TABLET PO SCH (09:28)
[2017-10-29] MEDS: MULTIVITAMIN (BEROCCA) TABLET PO SCH (09:28)
[2017-10-29 13:50] LABS: Hematocrit 30.6 VOL% (42.0-52.0); Hemoglobin 10.1 GM/DL (14.0-18.0)
[2017-10-29] MEDS: ENOXAPARIN 30 MG/0.3 ML SYRINGE SUBCUT SCH (22:10)
[2017-10-30] MEDS: ALBUTEROL/IPRATROPIUM 3 ML NEB RESP TX SCH ×4 (01:03→20:07)
[2017-10-30] MEDS: METOCLOPRAMIDE 5 MG TABLET PO SCH ×3 (05:46→17:09)
[2017-10-30 06:15] LABS: Basophils % 0.5 % (0.0-0.8); Eosinophils # 0.2 10*3/uL (0.0-0.87); Eosinophils % 2.5 % (0.00-10.9); Hematocrit 31.8 VOL% (42.0-52.0); Hemoglobin 10.4 GM/DL (14.0-18.0); Immature Granulocytes % 0.4 %; Immature Granulocytes Absolute 0.03 #; Lymphocytes # 1.5 10*3/uL (1.4-4.0); Lymphocytes % 19.9 % (21.2-54.2); Mean Corpuscular HGB Conc 32.7 GM/DL (32-36); Mean Corpuscular Hemoglobin 28 PG (27-34); Mean Platelet Volume 13.9 FL (9.6-12.0); Monocytes # 0.9 10*3/uL (0.11-0.8); Monocytes % 11.5 % (1.7-12.7); Neutrophils # 5.1 10*3/uL (1.4-7.4); Neutrophils % 65.2 % (38.7-73.9); Platelet Count 186 T/CUMM (130-400); Red Blood Count 3.74 MC/CUMM (3.8-5.5); Red Cell Distribution Width 17.4 % (9.3-17.3); White Blood Count 7.8 T/CUMM (4-12)
[2017-10-30 06:51] LABS: Osmolality,Calculated 292.3 MOS/KG (273-304); Potassium 4.4 MMOL/L (3.5-5.1)
[2017-10-30] MEDS: THIAMINE 200 MG/2 ML VIAL IV SCH (08:39)
[2017-10-30] MEDS: LACTULOSE 20 GM/30 ML UDCUP PO SCH ×2 (08:39→22:27)
[2017-10-30] MEDS: POTASSIUM CHLORIDE 20 MEQ PACK PO SCH (08:39)
[2017-10-30] MEDS: METOPROLOL TARTRATE 100 MG TABLET PO SCH ×3 (08:40→22:27)
[2017-10-30] MEDS: ASPIRIN CHEW 81 MG TABLET PO SCH (08:40)
[2017-10-30] MEDS: FUROSEMIDE 40 MG TABLET PO SCH (08:40)
[2017-10-30] MEDS: ISOSORBIDE DINITRATE 10 MG TABLET PO SCH ×2 (08:40→22:27)
[2017-10-30] MEDS: MULTIVITAMIN (BEROCCA) TABLET PO SCH (08:40)
[2017-10-30] MEDS: FOLIC ACID 1 MG TABLET PO SCH (08:40)
[2017-10-30] MEDS: ENOXAPARIN 30 MG/0.3 ML SYRINGE SUBCUT SCH (22:28)
[2017-10-31] MEDS: ALBUTEROL/IPRATROPIUM 3 ML NEB RESP TX SCH ×4 (00:22→20:42)
[2017-10-31] MEDS: METOCLOPRAMIDE 5 MG TABLET PO SCH ×5 (01:28→23:31)
[2017-10-31] MEDS ORDERED: SIMETHICONE CHEW 125 MG TABLET PO PRN (02:28)
[2017-10-31 06:57] LABS: Basophils % 0.2 % (0.0-0.8); Eosinophils # 0.2 10*3/uL (0.0-0.87); Eosinophils % 1.8 % (0.00-10.9); Hematocrit 31.4 VOL% (42.0-52.0); Hemoglobin 10.1 GM/DL (14.0-18.0); Immature Granulocytes % 0.7 %; Immature Granulocytes Absolute 0.07 #; Lymphocytes # 1.3 10*3/uL (1.4-4.0); Mean Corpuscular HGB Conc 32.2 GM/DL (32-36); Mean Corpuscular Hemoglobin 28 PG (27-34); Mean Corpuscular Volume 85.8 FL (87-102); Monocytes # 0.8 10*3/uL (0.11-0.8); Monocytes % 8.3 % (1.7-12.7); Neutrophils # 7.1 10*3/uL (1.4-7.4); Platelet Count 215 T/CUMM (130-400); Red Blood Count 3.66 MC/CUMM (3.8-5.5); Red Cell Distribution Width 17.5 % (9.3-17.3); White Blood Count 9.5 T/CUMM (4-12)
[2017-10-31 07:33] LABS: Calcium 9.2 MG/DL (8.5-10.1); Magnesium 2.1 MG/DL (1.8-2.4); Osmolality,Calculated 294.1 MOS/KG (273-304); Potassium 4.3 MMOL/L (3.5-5.1)
[2017-10-31] MEDS ORDERED: POLYETHYLENE GLYCOL POWDER 17 GM PACK PO PRN (08:18)
[2017-10-31] MEDS: POTASSIUM CHLORIDE 20 MEQ PACK PO SCH (08:50)
[2017-10-31] MEDS: MULTIVITAMIN (BEROCCA) TABLET PO SCH (08:50)
[2017-10-31] MEDS: FUROSEMIDE 40 MG TABLET PO SCH ×2 (08:50→15:05)
[2017-10-31] MEDS: FOLIC ACID 1 MG TABLET PO SCH (08:50)
[2017-10-31] MEDS: ASPIRIN CHEW 81 MG TABLET PO SCH (08:50)
[2017-10-31] MEDS: ISOSORBIDE DINITRATE 10 MG TABLET PO SCH ×2 (08:50→21:59)
[2017-10-31] MEDS: METOPROLOL TARTRATE 100 MG TABLET PO SCH ×4 (08:51→22:00)
[2017-10-31] MEDS: LACTULOSE 20 GM/30 ML UDCUP PO SCH ×2 (08:51→22:00)
[2017-10-31] MEDS: THIAMINE 200 MG/2 ML VIAL IV SCH (08:54)
[2017-10-31] MEDS: amLODIPine 5 MG TABLET PO SCH (12:58)
[2017-10-31] MEDS ORDERED: SKIN HEALING OINT (AQUAPHOR) 50 GM TUBE TOP PRN (15:55)
[2017-10-31] MEDS ORDERED: ZINC OXIDE PASTE 113 GM TUBE TOP PRN (15:56)
[2017-10-31] MEDS: ENOXAPARIN 30 MG/0.3 ML SYRINGE SUBCUT SCH (22:00)
[2017-11-01] MEDS: ALBUTEROL/IPRATROPIUM 3 ML NEB RESP TX SCH ×4 (00:58→20:26)
[2017-11-01] MEDS: METOCLOPRAMIDE 5 MG TABLET PO SCH ×3 (05:50→17:05)
[2017-11-01 07:09] LABS: Basophils % 0.4 % (0.0-0.8); Eosinophils # 0.2 10*3/uL (0.0-0.87); Eosinophils % 2.3 % (0.00-10.9); Hematocrit 31.7 VOL% (42.0-52.0); Immature Granulocytes % 0.6 %; Immature Granulocytes Absolute 0.06 #; Lymphocytes # 1.4 10*3/uL (1.4-4.0); Lymphocytes % 14.8 % (21.2-54.2); Mean Corpuscular HGB Conc 31.5 GM/DL (32-36); Mean Corpuscular Hemoglobin 28 PG (27-34); Mean Corpuscular Volume 87.1 FL (87-102); Mean Platelet Volume 13.8 FL (9.6-12.0); Monocytes # 0.9 10*3/uL (0.11-0.8); Monocytes % 9.2 % (1.7-12.7); Neutrophils # 6.8 10*3/uL (1.4-7.4); Neutrophils % 72.7 % (38.7-73.9); Platelet Count 214 T/CUMM (130-400); Red Blood Count 3.64 MC/CUMM (3.8-5.5); Red Cell Distribution Width 17.6 % (9.3-17.3); White Blood Count 9.4 T/CUMM (4-12)
[2017-11-01 07:45] LABS: Calcium 8.9 MG/DL (8.5-10.1); Magnesium 1.8 MG/DL (1.8-2.4); Osmolality,Calculated 290.3 MOS/KG (273-304); Potassium 4.1 MMOL/L (3.5-5.1)
[2017-11-01] MEDS: ASPIRIN CHEW 81 MG TABLET PO SCH (08:46)
[2017-11-01] MEDS: FUROSEMIDE 40 MG TABLET PO SCH ×2 (08:46→15:41)
[2017-11-01] MEDS: FOLIC ACID 1 MG TABLET PO SCH (08:46)
[2017-11-01] MEDS: METOPROLOL TARTRATE 100 MG TABLET PO SCH ×2 (08:46→15:41)
[2017-11-01] MEDS: LACTULOSE 20 GM/30 ML UDCUP PO SCH ×2 (08:46→21:33)
[2017-11-01] MEDS: amLODIPine 5 MG TABLET PO SCH (08:46)
[2017-11-01] MEDS: POTASSIUM CHLORIDE 20 MEQ PACK PO SCH (08:47)
[2017-11-01] MEDS: ISOSORBIDE DINITRATE 10 MG TABLET PO SCH ×2 (08:47→21:33)
[2017-11-01] MEDS: THIAMINE 200 MG/2 ML VIAL IV SCH (08:47)
[2017-11-01] MEDS: MULTIVITAMIN (BEROCCA) TABLET PO SCH (08:50)
[2017-11-01] MEDS: MORPHINE 2 MG/1 ML SYRINGE IV PRN (21:34)
[2017-11-01] MEDS: ENOXAPARIN 30 MG/0.3 ML SYRINGE SUBCUT SCH (21:34)
[2017-11-02] MEDS: ALBUTEROL/IPRATROPIUM 3 ML NEB RESP TX SCH ×4 (00:23→19:48)
[2017-11-02] MEDS: METOPROLOL TARTRATE 100 MG TABLET PO SCH ×4 (01:51→20:39)
[2017-11-02] MEDS: METOCLOPRAMIDE 5 MG TABLET PO SCH ×5 (01:51→23:56)
[2017-11-02 06:04] LABS: Basophils % 0.2 % (0.0-0.8); Eosinophils % 0.1 % (0.00-10.9); Hematocrit 29.7 VOL% (42.0-52.0); Hemoglobin 9.3 GM/DL (14.0-18.0); Immature Granulocytes % 0.7 %; Immature Granulocytes Absolute 0.12 #; Lymphocytes # 0.8 10*3/uL (1.4-4.0); Lymphocytes % 4.8 % (21.2-54.2); Mean Corpuscular HGB Conc 31.3 GM/DL (32-36); Mean Corpuscular Hemoglobin 28 PG (27-34); Mean Corpuscular Volume 87.9 FL (87-102); Mean Platelet Volume 13.5 FL (9.6-12.0); Monocytes # 1.1 10*3/uL (0.11-0.8); Monocytes % 6.7 % (1.7-12.7); Neutrophils # 14.5 10*3/uL (1.4-7.4); Neutrophils % 87.5 % (38.7-73.9); Platelet Count 207 T/CUMM (130-400); Red Blood Count 3.38 MC/CUMM (3.8-5.5); Red Cell Distribution Width 18.2 % (9.3-17.3); White Blood Count 16.6 T/CUMM (4-12)
[2017-11-02 06:32] LABS: Calcium 8.6 MG/DL (8.5-10.1); Hypochromasia 2+; Lymphocytes 4 % (20-55); Magnesium 1.9 MG/DL (1.8-2.4); Microcytosis 1+; Platelet Estimate Adequate; Potassium 4.4 MMOL/L (3.5-5.1); Segmented Neutrophils 93 % (50-85); Total Cells Counted 100
[2017-11-02] MEDS: ASPIRIN CHEW 81 MG TABLET PO SCH (09:08)
[2017-11-02] MEDS: FOLIC ACID 1 MG TABLET PO SCH (09:08)
[2017-11-02] MEDS: FUROSEMIDE 80 MG TABLET PO SCH ×2 (09:08→16:06)
[2017-11-02] MEDS: ISOSORBIDE DINITRATE 10 MG TABLET PO SCH ×2 (09:09→20:39)
[2017-11-02] MEDS: THIAMINE 200 MG/2 ML VIAL IV SCH (09:09)
[2017-11-02] MEDS: LACTULOSE 20 GM/30 ML UDCUP PO SCH ×2 (09:09→20:39)
[2017-11-02] MEDS: amLODIPine 10 MG TABLET PO SCH (09:09)
[2017-11-02] MEDS: POTASSIUM CHLORIDE 20 MEQ PACK PO SCH (09:09)
[2017-11-02] MEDS: MULTIVITAMIN (BEROCCA) TABLET PO SCH (09:09)
[2017-11-02 17:13] LABS: Apearance,Urine CLEAR (Clear); Bilirubin,Urine Negative (Negative); Blood, Urine Moderate mg/dL (Negative); Glucose,Urine (UA) Negative (Negative); Ketones,Urine Negative (Negative); Mucus,Urine Occasional /LPF (Occasional); Nitrite,Urine Negative (Negative); Protein,Urine 30 MG/DL; RBC,Urine 65 /HPF (0-4); Urine Color Yellow (Yellow); Urine Urobilinogen < 2.0 EU/DL (0.2-1.0); WBC,Urine 3 /HPF (0-6)
[2017-11-02] MEDS: ENOXAPARIN 30 MG/0.3 ML SYRINGE SUBCUT SCH (21:55)
[2017-11-03] MEDS: ALBUTEROL/IPRATROPIUM 3 ML NEB RESP TX SCH ×4 (01:21→19:23)
[2017-11-03 05:23] LABS: Basophils % 0.3 % (0.0-0.8); Eosinophils # 0.2 10*3/uL (0.0-0.87); Hematocrit 29.9 VOL% (42.0-52.0); Hemoglobin 9.8 GM/DL (14.0-18.0); Immature Granulocytes % 0.6 %; Immature Granulocytes Absolute 0.06 #; Lymphocytes # 1.7 10*3/uL (1.4-4.0); Lymphocytes % 16.7 % (21.2-54.2); Mean Corpuscular HGB Conc 32.8 GM/DL (32-36); Mean Corpuscular Hemoglobin 28 PG (27-34); Mean Corpuscular Volume 85.4 FL (87-102); Mean Platelet Volume 13.8 FL (9.6-12.0); Monocytes # 0.8 10*3/uL (0.11-0.8); Monocytes % 7.8 % (1.7-12.7); Neutrophils # 7.2 10*3/uL (1.4-7.4); Neutrophils % 72.6 % (38.7-73.9); Platelet Count 239 T/CUMM (130-400); Red Cell Distribution Width 18.6 % (9.3-17.3)
[2017-11-03 05:59] LABS: Calcium 8.5 MG/DL (8.5-10.1); Calcium 8.6 MG/DL (8.5-10.1); Osmolality,Calculated 290.3 MOS/KG (273-304); Osmolality,Calculated 292.1 MOS/KG (273-304); Potassium 3.9 MMOL/L (3.5-5.1)
[2017-11-03] MEDS: METOCLOPRAMIDE 5 MG TABLET PO SCH ×3 (06:30→17:12)
[2017-11-03] MEDS: LACTULOSE 20 GM/30 ML UDCUP PO SCH ×2 (09:20→21:18)
[2017-11-03] MEDS: FOLIC ACID 1 MG TABLET PO SCH (09:21)
[2017-11-03] MEDS: FUROSEMIDE 80 MG TABLET PO SCH ×2 (09:21→17:12)
[2017-11-03] MEDS: MULTIVITAMIN (BEROCCA) TABLET PO SCH (09:21)
[2017-11-03] MEDS: THIAMINE 200 MG/2 ML VIAL IV SCH (09:22)
[2017-11-03] MEDS: METOPROLOL TARTRATE 100 MG TABLET PO SCH ×3 (09:22→21:16)
[2017-11-03] MEDS: ISOSORBIDE DINITRATE 10 MG TABLET PO SCH ×2 (09:22→21:16)
[2017-11-03] MEDS: ASPIRIN CHEW 81 MG TABLET PO SCH (09:22)
[2017-11-03] MEDS: POTASSIUM CHLORIDE 20 MEQ PACK PO SCH (09:22)
[2017-11-03] MEDS: amLODIPine 10 MG TABLET PO SCH (09:22)
[2017-11-03] MEDS: PANTOPRAZOLE 40 MG TABLET PO SCH (16:03)
[2017-11-03] MEDS: ENOXAPARIN 30 MG/0.3 ML SYRINGE SUBCUT SCH (21:14)
[2017-11-04] MEDS: METOCLOPRAMIDE 5 MG TABLET PO SCH ×4 (00:42→17:18)
[2017-11-04] MEDS: ALBUTEROL/IPRATROPIUM 3 ML NEB RESP TX SCH ×4 (00:49→19:29)
[2017-11-04 07:01] LABS: Basophils % 0.4 % (0.0-0.8); Eosinophils # 0.2 10*3/uL (0.0-0.87); Eosinophils % 2.4 % (0.00-10.9); Hematocrit 31.1 VOL% (42.0-52.0); Hemoglobin 10.1 GM/DL (14.0-18.0); Immature Granulocytes % 0.5 %; Immature Granulocytes Absolute 0.05 #; Lymphocytes # 1.4 10*3/uL (1.4-4.0); Mean Corpuscular HGB Conc 32.5 GM/DL (32-36); Mean Corpuscular Hemoglobin 28 PG (27-34); Monocytes # 0.9 10*3/uL (0.11-0.8); Monocytes % 9.2 % (1.7-12.7); Neutrophils # 7.1 10*3/uL (1.4-7.4); Neutrophils % 73.5 % (38.7-73.9); Platelet Count 273 T/CUMM (130-400); Red Blood Count 3.66 MC/CUMM (3.8-5.5); Red Cell Distribution Width 18.7 % (9.3-17.3); White Blood Count 9.7 T/CUMM (4-12)
[2017-11-04 07:29] LABS: Calcium 8.8 MG/DL (8.5-10.1); Magnesium 1.8 MG/DL (1.8-2.4); Osmolality,Calculated 287.3 MOS/KG (273-304); Potassium 3.6 MMOL/L (3.5-5.1)
[2017-11-04] MEDS: THIAMINE 200 MG/2 ML VIAL IV SCH (09:05)
[2017-11-04] MEDS: ISOSORBIDE DINITRATE 10 MG TABLET PO SCH ×2 (09:05→21:53)
[2017-11-04] MEDS: MULTIVITAMIN (BEROCCA) TABLET PO SCH (09:05)
[2017-11-04] MEDS: FUROSEMIDE 80 MG TABLET PO SCH ×2 (09:05→17:18)
[2017-11-04] MEDS: amLODIPine 10 MG TABLET PO SCH (09:05)
[2017-11-04] MEDS: METOPROLOL TARTRATE 100 MG TABLET PO SCH ×3 (09:06→21:53)
[2017-11-04] MEDS: LACTULOSE 20 GM/30 ML UDCUP PO SCH ×2 (09:06→21:54)
[2017-11-04] MEDS: FOLIC ACID 1 MG TABLET PO SCH (09:06)
[2017-11-04] MEDS: POTASSIUM CHLORIDE 20 MEQ PACK PO SCH (09:06)
[2017-11-04] MEDS: ASPIRIN CHEW 81 MG TABLET PO SCH (09:06)
[2017-11-04] MEDS: PANTOPRAZOLE 40 MG TABLET PO SCH (09:08)
[2017-11-04] MEDS: MORPHINE 2 MG/1 ML SYRINGE IV PRN (21:49)
[2017-11-04] MEDS: ENOXAPARIN 30 MG/0.3 ML SYRINGE SUBCUT SCH (21:53)
[2017-11-05] MEDS: ALBUTEROL/IPRATROPIUM 3 ML NEB RESP TX SCH ×3 (00:41→13:10)
[2017-11-05] MEDS: METOCLOPRAMIDE 5 MG TABLET PO SCH ×3 (00:49→12:38)
[2017-11-05] MEDS: MORPHINE 2 MG/1 ML SYRINGE IV PRN (01:23)
[2017-11-05 06:47] LABS: Calcium 8.3 MG/DL (8.5-10.1); Osmolality,Calculated 285.3 MOS/KG (273-304); Potassium 3.1 MMOL/L (3.5-5.1)
[2017-11-05] MEDS: amLODIPine 10 MG TABLET PO SCH (08:57)
[2017-11-05] MEDS: FUROSEMIDE 80 MG TABLET PO SCH ×2 (08:57→15:10)
[2017-11-05] MEDS: MULTIVITAMIN (BEROCCA) TABLET PO SCH (08:57)
[2017-11-05] MEDS: METOPROLOL TARTRATE 100 MG TABLET PO SCH ×2 (08:58→15:10)
[2017-11-05] MEDS: FOLIC ACID 1 MG TABLET PO SCH (08:58)
[2017-11-05] MEDS: POTASSIUM CHLORIDE 20 MEQ PACK PO SCH (08:58)
[2017-11-05] MEDS: PANTOPRAZOLE 40 MG TABLET PO SCH (08:58)
[2017-11-05] MEDS: ASPIRIN CHEW 81 MG TABLET PO SCH (08:58)
[2017-11-05] MEDS: ISOSORBIDE DINITRATE 10 MG TABLET PO SCH (08:58)
[2017-11-05] MEDS: LACTULOSE 20 GM/30 ML UDCUP PO SCH (10:08)
[2017-11-05] MEDS: THIAMINE 200 MG/2 ML VIAL IV SCH (10:08)
[2017-11-05] MEDS ORDERED: TUBERCULIN SKIN TEST 0.1 ML SYRINGE INTRADERM ONE (12:30)
[2017-11-05] MEDS ORDERED: POTASSIUM CHLORIDE 20 MEQ TABLET PO ONE (15:00)
[2017-11-05 17:02] VITALS: BP 111/53
== END 2017-11-05 17:45 | DRG 207 ==
LOC: EDUNIT# → EDBD → N.ED 04:06 → SUATTDRO 06:11 → N.EDINP 06:11 → N.ICU 12:52 → N.5E 10-27 13:43
PROVIDERS: ADMIT Internal Medicine; ATTEND Internal Medicine